=== PATIENT | male | born 1995 | race Caucasian/White ===

== ENCOUNTER → 2024-06-14 12:19 | Outpatient (CLI) | payer OTHER, SELFPAY ==
--- NOTE | 2024-06-14 12:22 | DI.ECHO.S_ITS ---
[facility] : : [address] : : [place] : : [id number] : : Phone: [phone] Echocardiogram Report + + :Name: REENA AUGUSTE Study Date: 06/14/2024 Height: 70 in : :[facility] ReadingLocation: Weight: 240 lb : : Gender: Male BSA: 2.3 m2 : :: 1995 Age: 28 yrs BP: 131/83 mmHg: :Reason For Study: WPW : :Ordering Physician: VERO SOLOMON Performed By: Fritz Honeycutt : :Referring: VREO SOLOMON : + + Interpretation Summary 1. The left ventricular contractility is borderline. Estimated ejection fraction is approximately 50 to 55% with no segmental wall motion abnormalities. No LVH. Normal diastolic function. 2. The right ventricular contractility is normal. 3. All other cardiac chambers are of normal size. 4. No significant valvular abnormalities. 5. No shunts noted on agitated saline contrast study. 6. No obvious intracardiac masses nor thrombi. 7. No hemodynamically significant pericardial effusion. 8. Low right-sided filling pressures. Conclusion: Low normal left ventricular systolic function with no significant valvular nor structural abnormalities. Procedure: A two-dimensional transthoracic echocardiogram with color flow and Doppler was performed. A saline contrast injection was performed to assess for cardiac shunting. The study quality was technically good. There is no prior echocardiogram noted for this patient. The patient was in normal sinus rhythm during the exam. Left Ventricle: The left ventricle is normal in size. There is normal left ventricular wall thickness. There is no ventricular septal defect visualized. The ejection fraction is estimated to be 50-55%. There are no focal wall motion abnormalities. Right Ventricle: The right ventricle is normal in size and function. Atria: The left atrial size is normal. Right atrial size is normal. Injection of contrast documented no interatrial shunt. Mitral Valve: The mitral valve is normal in structure and function. There is trace mitral regurgitation. Aortic Valve: The aortic valve is trileaflet. The aortic valve opens well. No aortic regurgitation is present. Tricuspid Valve: The tricuspid valve is normal in structure and function. No tricuspid regurgitation. Pulmonic Valve: The pulmonic valve is normal in structure and function. There is trace pulmonic regurgitation. Great Vessels: The aortic root is normal size. The dimensions of the ascending aorta are normal. The pulmonary artery is normal size. The IVC is of normal diameter and collapses greater than 50% with a sniff. This suggests a low right atrial pressure of 3 mm Hg. Pericardium/ Pleura There is no pericardial effusion. There is no pleural effusion. MMode/2D Measurements & Calculations LVIDd: 5.1 cm LVOT diam: 2.4 cm LVIDs: 4.0 cm Ao root diam: 3.1 cm FS: 22.6 % asc Aorta Diam: 2.6 cm EPSS: 1.3 cm Ao Arch Diam (Prox Trans): 2.3 cm IVSd: 0.83 cm LVPWd: 0.82 cm LV muñoz. diameter/BSA (cm/m^2): 2.3 LV sys. diameter/BSA (cm/m^2): 1.8 LA A2 area: 18.6 cm2 RA long axis: 4.9 cm LA A4 area: 17.2 cm2 RA area: 14.6 cm2 LA length (vol): 5.5 cm RA vol: 36.9 ml LA vol: 49.6 ml RA : 16.3 ml/m2 LA vol index: 22.0 ml/m2 IVC diam: 1.6 cm RVD1 (basal): 3.5 cm RVD2 (mid): 3.4 cm TAPSE: 2.4 cm Doppler Measurements & Calculations Ao V2 max: 130.4 cm/sec LVOT Max Sanju: 109.6 cm/sec Ao V2 mean: 87.7 cm/sec LV V1 max P.8 mmHg Ao max P.8 mmHg LV V1 VTI: 22.3 cm Ao mean P.6 mmHg HECTOR(I,D): 3.5 cm2 Ao V2 VTI: 29.0 cm HECTOR(V,D): 3.8 cm2 sev ratio: 0.77 HECTOR indexed to BSA (cm^2/m^2): 1.5 MV E max sanju: 57.6 cm/sec PA V2 max: 86.2 cm/sec MV A max sanju: 39.2 cm/sec PA V2 mean: 62.2 cm/sec MV E/A: 1.5 PA mean P.7 mmHg Med Peak E' Sanju: 9.7 cm/sec PA pr(Accel): 19.1 mmHg E/E' med: 5.9 Lat Peak E' Sanju: 14.1 cm/sec E/E' lat: 4.1 E/e' average: 5.0 MV dec time: 0.24 sec SV(LVOT): 101.2 ml Reading Physician:
== END ==
PROVIDERS: Referring Provider Internal Medicine; Visit Provider Internal Medicine
DX: I45.6 Pre-excitation syndrome (principal)
CPT/HCPCS: 93306